=== PATIENT | male | born 1960 | race Caucasian/White ===

== ENCOUNTER 2021-09-17 06:54 | Inpatient (IN) | payer BC, SELFPAY ==
[2021-09-17] VITALS (25 sets, daily range): BP systolic 86–139; BP diastolic 50–90; PULSE 55–76; RESP 0–24; TEMP 36.6–36.9; O2SAT 97–100; BMI 22.8
--- NOTE | 2021-09-17 07:03 | ECG_ITS ---
[facility] Test Date: 2021-09-17 Pat Name: Johnathan Frances Department: Room: Gender: Male [employer]: : 1960 Requested By: Angi Galarza Order Number: [id number] Elver MD: Tiny Segura M.D. Measurements Intervals Novice Rate: 77 P: 80 IA: 154 QRS: 85 QRSD: 83 T: 94 QT: 393 QTc: 446 Interpretive Statements SINUS RHYTHM ANTEROSEPTAL MYOCARDIAL INFARCTION , PROBABLY RECENT [40+ ms Q WAVE IN V1-V4] ACUTE [place] No previous ECG available for comparison Electronically Signed On 09-17-2021 22:19:40 CDT by Tiny Segura M.D. [id number]
--- NOTE | 2021-09-17 07:03 | XRR_ITS ---
PROCEDURE INFORMATION: Exam: XR Chest Exam date and time: 09/17/2021 7:28 AM Age: 60 years old Clinical indication: Pain; Angina pectoris; Additional info: Chest pain TECHNIQUE: Imaging protocol: Radiologic exam of the chest. Views: 1 view. Total images: 2 COMPARISON: No relevant prior studies available. FINDINGS: Lungs: Unremarkable. No consolidation. Pleural spaces: Unremarkable. No pleural effusion. No pneumothorax. Heart/Mediastinum: Unremarkable. No cardiomegaly. Bones/joints: Unremarkable. XR/XR chest 1V portable [id number] IMPRESSION: No acute findings.
--- NOTE | 2021-09-17 07:26 | W.ED.CHESTPA ---
Documented by User: CHAVO Franks 09/17/21 09:46 HPI - Chest Pain General: Chief Complaint: Chest Pain Stated Complaint: chest pain Time Seen by Provider: 09/17/21 07:03 Source: patient Mode of arrival: ambulatory Limitations: no limitations History of Present Illness: Patient is a nice 60-year-old male who presents to ED today with a complaint of chest pain. 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 Patient states he was not doing anything exertional when pain began. He states he initially became nauseous with the discomfort but states after he sat down the nausea subsided. Patient states he was concerned as chest pain did not seem to be improving. 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 There was no radicular pains. He does not complain of shortness of breath or difficulty breathing. Patient has no previous cardiac or pulmonary history. He is a non-smoker. No strong family cardiac history. Patient with no known PMH/doesn't take any medications. No excessive caffeine/energy drink use. No drug/etoh use. MD complaint: chest pain Onset (ago): hour(s) Timing of current episode: constant Prior episodes: No Onset: during rest Pain location: substernal and left chest Pain radiation: none Relieving factors: nothing Exacerbating factors: exertion, palpation and movement Associated symptoms: Reports no associated symptoms and nausea (resolved); Deny abdominal pain, dyspnea, fever(s), palpitations, syncope or vomiting Treatment prior to arrival: aspirin Risk Factors: Coronary artery disease risk factors: none Thoracic aortic dissection risk factors: none Review of Systems Const: Denies: fever(s), chills, body aches, fatigue or malaise Eyes: Denies: change in vision or blurry vision Card: Reports: chest pain; Denies: palpitations, irregular heart rhythm, edema, swelling of feet/ankles, lightheadedness, syncope, pre-syncope, dyspnea on exertion, orthopnea, leg pain with exertion or acrocyanosis Resp: Denies: dyspnea, productive cough, non-productive cough, wheezing, hemoptysis or chest congestion GI: Reports: nausea (resolved); Denies: abdominal pain, vomiting or diarrhea Musc: Denies: neck pain, back pain, extremity pain, extremity swelling or joint pain Skin/Breast: Denies: rash Neuro: Denies: headache(s), numbness in extremities, weakness in extremities, sensory changes or dizziness PFSH ED PFSH: Medical History (Updated 09/17/21 @ 11:19 by Selvin Leblanc DO) No pertinent past medical history Surgical History (Updated 09/17/21 @ 11:15 by Selvin Leblanc DO) No pertinent past surgical history Social History Smoking and tobacco status: never smoked Physical Exam Const: COMMON NORMALS: no acute distress, average body habitus, patient oriented x3, no limitations, healthy appearing, alert and well nourished GENERAL APPEARANCE: cooperative ORIENTATION/CONSCIOUSNESS: Yes awake, Yes oriented to person, Yes oriented to place and Yes oriented to time HENMT: COMMON NORMALS: normocephalic and atraumatic HEAD & SCALP: normal to inspection, normocephalic and atraumatic Eye: GENERAL EYE: appearance normal, both eyes and all related structures Neck/C-Spine: COMMON NORMALS: full ROM, no lymphadenopathy, supple, no meningeal signs and no JVD GENERAL: Yes normal visual inspection Chest: COMMONS NORMALS: normal inspection of the chest OTHER: patient states he does have a little bit of tenderness with palpation of his anterior chest wall Resp: COMMON NORMALS: normal respiratory effort and clear to auscultation bilaterally AUSCULTATION: clear to auscultation bilaterally Cardio: COMMON NORMALS: no JVD, regular rate and regular rhythm RATE: regular rate RHYTHM: regular rhythm GI: COMMON NORMALS: Normal to inspection, nondistended, normoactive bowel sounds present, Soft to palpation, non-tender, No hepatosplenomegaly present and no masses PALPATION: Yes Soft to palpation and Yes No hepatosplenomegaly present : COMMON NORMALS: Yes no CVA tenderness BLADDER/KIDNEY EXAM: Yes no CVA tenderness Back/Pelvis: COMMON NORMALS: no CVA tenderness and thoracic and lumbar spine normal to inspection Extremity: COMMON NORMALS: normal to inspection, full ROM, capillary refill normal, no joint enlargement, no clubbing, cyanosis or edema, no calf tenderness and no pedal edema GENERAL: Yes normal exam except as noted Neuro: MIKE COMA SCALE: document GCS findings [place] coma scale total score: COMMON NORMALS: patient oriented x3, CN's II-XII intact bilaterally, moves all extremities, no focal motor deficits, no sensory deficits noted and gait normal SENSORIUM/ORIENTATION: Yes alert, Yes oriented to person, Yes oriented to place and Yes oriented to time MENINGEAL SIGNS: Yes no meningeal signs MOTOR EXAM: 5/5 motor strength present throughout Skin: COMMON NORMALS: no rashes or lesions noted GENERAL SKIN EXAM: no rashes or lesions noted Course Vital Signs: Vital signs: Vital Signs Temperature 97.8 F 09/17/21 09:06 Pulse Rate 71 09/17/21 09:06 Respiratory Rate 12 09/17/21 09:06 Blood Pressure 139/90 09/17/21 09:06 Pulse Oximetry 98 09/17/21 09:06 MDM - Chest Pain Medical Decision Making Shortly after examination I was handed patient's initial EKG which showed ST elevation in his anterior leads. Dr. Leblanc was immediately notified and STEMI alert called. He will assume care at this time. Lab Data : 09/17/21 07:54 09/17/21 07:54 Radiology Impressions Chest X-Ray 09/17/21 07:03 IMPRESSION: No acute findings. Laboratory Results WBC 12.2 10^3/uL (4.0-10.0) H 09/17/21 07:54 RBC 4.57 10^6/uL (4.1-5.3) 09/17/21 07:54 Hgb 14.9 g/dL (11.7-16.6) 09/17/21 07:54 Hct 42.2 % (42.0-52.0) 09/17/21 07:54 MCV 92.3 fl (80-94) 09/17/21 07:54 MCH 32.6 pg (28.0-34.0) 09/17/21 07:54 MCHC 35.3 g/dL (30.0-36.0) 09/17/21 07:54 RDW 12.2 % (12.1-15.1) 09/17/21 07:54 Plt Count 185 10^3/cmm (130-400) 09/17/21 07:54 MPV 9.9 fL (7.4-10.4) 09/17/21 07:54 Neut % (Auto) 84.9 % 09/17/21 07:54 Lymph % (Auto) 10.5 % 09/17/21 07:54 Bleck[place] % (Auto) 4.0 % 09/17/21 07:54 Eos % (Auto) 0.0 % 09/17/21 07:54 Baso % (Auto) 0.2 % 09/17/21 07:54 Neut # (Auto) 10.38 10^3/uL (1.8-7.7) H 09/17/21 07:54 Lymph # (Auto) 1.3 10^3/uL (0.8-4.8) 09/17/21 07:54 [place]ck[place] # (Auto) 0.5 10^3/uL (0.2-0.9) 09/17/21 07:54 Eos # (Auto) 0.0 10^3/uL (0.0-0.8) 09/17/21 07:54 Baso # (Auto) 0.0 10^3/uL (0.0-0.1) 09/17/21 07:54 Nucleated RBC % (auto) 0 % 09/17/21 07:54 Nucleated RBCs # 0.0 /100WBC 09/17/21 07:54 Sodium 134 mmol/L (136-145) L 09/17/21 07:54 Potassium 4.6 mmol/L (3.5-5.1) 09/17/21 07:54 Chloride 96 mmol/L (98-107) L 09/17/21 07:54 Carbon Dioxide 27 mmol/L (22-29) 09/17/21 07:54 Anion Gap 15.6 (5-19) 09/17/21 07:54 BUN 13 mg/dL (6-20) 09/17/21 07:54 Creatinine 0.8 mg/dL (0.7-1.2) 09/17/21 07:54 GFR Calculation 99.3 mL/min (90-130) 09/17/21 07:54 Glucose 96 mg/dL (65-115) 09/17/21 07:54 Calculated Osmolality 278 mOsm/kg (285-295) L 09/17/21 07:54 Calcium 9.4 mg/dL (8.5-10.5) 09/17/21 07:54 Total Bilirubin 0.4 mg/dL (0.15-1.2) 09/17/21 07:54 AST 112 U/L (0-40) H 09/17/21 07:54 ALT 27 U/L (0-41) 09/17/21 07:54 Alkaline Phosphatase 35 IU/L (40-130) L 09/17/21 07:54 Troponin T Baseline 775 ng/L (0-15) H* 09/17/21 07:54 Total Protein 7.1 g/dL (6.6-8.7) 09/17/21 07:54 Albumin 4.7 g/dL (3.5-5.2) 09/17/21 07:54 Globulin 2.4 g/dL (1.3-4.6) 09/17/21 07:54 Discharge Plan Discharge Patient Disposition: Admitted As Inpatient Admit Provider: Tim Trejo Clinical Impression: ST elevation myocardial infarction (STEMI) Condition: Stable Sign Out Sign Out Data: Patient Sign Out occurred on 09/17/21 at 08:25. Patient's care was discussed, and care was transferred from to Selvin Leblanc DO. Coding Level of Care Code ED Apple Thinner for Chg Fwd Exam Comprehensive Documented by User: Selvin Leblanc DO 09/17/21 11:19 HPI - Chest Pain General: Chief Complaint: Chest Pain Stated Complaint: chest pain Time Seen by Provider: 09/17/21 07:03 Source: patient Mode of arrival: ambulatory Limitations: no limitations History of Present Illness: 52-year-old male presents emergency room with complaint of chest pain. Discussing with patient he has had increasing anginal-like chest pain for the last couple of weeks worse with exertion relieved by rest overnight he began having chest pain around 11:00 last night it was not relieved by rest and persisted he tried to work through it and continue to worsen so he came in this morning on arrival here is initially seen by the PA and found to have an ST elevation [place] with elevation of the segments in V1 through 4. He continues to have chest pain at this time. Patient does not smoke no history of coronary disease no diabetes no known history of hypertension. No family history of coronary artery disease MD complaint: chest pain Onset (ago): hour(s) Timing of current episode: episodic Prior episodes: Yes Onset: during rest Pain location: substernal and left chest Severity: mild Quality: tightness Relieving factors: nothing Exacerbating factors: exertion Associated symptoms: Reports nausea; Deny abdominal pain, diaphoresis, dyspnea, fever(s), leg edema, palpitations, sense of impending doom, syncope or vomiting Treatment prior to arrival: aspirin (pt took 648mg ) Review of Systems Const: Denies: fever(s) or diaphoresis Card: Denies: palpitations or syncope Resp: Denies: dyspnea GI: Reports: nausea; Denies: abdominal pain or vomiting : Denies: flank pain, difficulty urinating, dysuria, urinary frequency or urinary urgency [facility] ED PFSH: Medical History (Updated 09/17/21 @ 11:19 by Selvin Leblanc DO) No pertinent past medical history Surgical History (Updated 09/17/21 @ 11:15 by Selvin Leblanc DO) No pertinent past surgical history Social History Smoking and tobacco status: never smoked Physical Exam Const: COMMON NORMALS: no acute distress GENERAL APPEARANCE: cooperative and comfortable ORIENTATION/CONSCIOUSNESS: Yes awake, Yes oriented to person, Yes oriented to place and Yes oriented to time HENMT: COMMON NORMALS: normocephalic, atraumatic and hearing grossly normal bilaterally HEAD & SCALP: normocephalic and atraumatic Neck/C-Spine: COMMON NORMALS: no JVD Resp: COMMON NORMALS: normal respiratory effort, No retractions, No use of accessory muscles and clear to auscultation bilaterally AUSCULTATION: clear to auscultation bilaterally Cardio: COMMON NORMALS: no JVD, regular rate, regular rhythm and No murmurs present (Cardio) RATE: regular rate RHYTHM: regular rhythm GI: COMMON NORMALS: Soft to palpation and No hepatosplenomegaly present AUSCULTATION: Yes normoactive bowel sounds PALPATION: Yes Soft to palpation, No Tenderness to palpation present (GI), No Guarding due to palpation present (GI) and Yes No hepatosplenomegaly present Extremity: COMMON NORMALS: normal to inspection, capillary refill normal, no clubbing, cyanosis or edema, no calf tenderness and no pedal edema Neuro: SENSORIUM/ORIENTATION: Yes oriented to person, Yes oriented to place and Yes oriented to time Skin: COMMON NORMALS: no rashes or lesions noted GENERAL SKIN EXAM: no rashes or lesions noted Course Vital Signs: Vital signs: Vital Signs Temperature 97.8 F 09/17/21 09:06 Pulse Rate 71 09/17/21 09:06 Respiratory Rate 12 09/17/21 09:06 Blood Pressure 139/90 09/17/21 09:06 Pulse Oximetry 98 09/17/21 09:06 MDM - Chest Pain Medical Decision Making Shortly after examination I was handed patient's initial EKG which showed ST elevation in his anterior leads. Dr. Leblanc was immediately notified and STEMI alert called. He will assume care at this time. STEMI alert was called after reviewed the EKG it obviously is ST elevation call Dr. Trejo was on-call when he arrived he reviewed EKG and concurred he is discussed with the patient and they are taking him to the [place] he is received heparin nitro drip has been started has been loaded with Plavix. Medical Records I reviewed the patient's medical records. Lab Data I reviewed the patient's lab results. : 09/17/21 07:54 09/17/21 07:54 Radiology Impressions Chest X-Ray 09/17/21 07:03 IMPRESSION: No acute findings. Laboratory Results WBC 12.2 10^3/uL (4.0-10.0) H 09/17/21 07:54 RBC 4.57 10^6/uL (4.1-5.3) 09/17/21 07:54 Hgb 14.9 g/dL (11.7-16.6) 09/17/21 07:54 Hct 42.2 % (42.0-52.0) 09/17/21 07:54 MCV 92.3 fl (80-94) 09/17/21 07:54 MCH 32.6 pg (28.0-34.0) 09/17/21 07:54 MCHC 35.3 g/dL (30.0-36.0) 09/17/21 07:54 RDW 12.2 % (12.1-15.1) 09/17/21 07:54 Plt Count 185 10^3/cmm (130-400) 09/17/21 07:54 MPV 9.9 fL (7.4-10.4) 09/17/21 07:54 Neut % (Auto) 84.9 % 09/17/21 07:54 Lymph % (Auto) 10.5 % 09/17/21 07:54 [place]ck[place] % (Auto) 4.0 % 09/17/21 07:54 Eos % (Auto) 0.0 % 09/17/21 07:54 Baso % (Auto) 0.2 % 09/17/21 07:54 Neut # (Auto) 10.38 10^3/uL (1.8-7.7) H 09/17/21 07:54 Lymph # (Auto) 1.3 10^3/uL (0.8-4.8) 09/17/21 07:54 [place] # (Auto) 0.5 10^3/uL (0.2-0.9) 09/17/21 07:54 Eos # (Auto) 0.0 10^3/uL (0.0-0.8) 09/17/21 07:54 Baso # (Auto) 0.0 10^3/uL (0.0-0.1) 09/17/21 07:54 Nucleated RBC % (auto) 0 % 09/17/21 07:54 Nucleated RBCs # 0.0 /100WBC 09/17/21 07:54 Sodium 134 mmol/L (136-145) L 09/17/21 07:54 Potassium 4.6 mmol/L (3.5-5.1) 09/17/21 07:54 Chloride 96 mmol/L (98-107) L 09/17/21 07:54 Carbon Dioxide 27 mmol/L (22-29) 09/17/21 07:54 Anion Gap 15.6 (5-19) 09/17/21 07:54 BUN 13 mg/dL (6-20) 09/17/21 07:54 Creatinine 0.8 mg/dL (0.7-1.2) 09/17/21 07:54 GFR Calculation 99.3 mL/min (90-130) 09/17/21 07:54 Glucose 96 mg/dL (65-115) 09/17/21 07:54 Calculated Osmolality 278 mOsm/kg (285-295) L 09/17/21 07:54 Calcium 9.4 mg/dL (8.5-10.5) 09/17/21 07:54 Total Bilirubin 0.4 mg/dL (0.15-1.2) 09/17/21 07:54 AST 112 U/L (0-40) H 09/17/21 07:54 ALT 27 U/L (0-41) 09/17/21 07:54 Alkaline Phosphatase 35 IU/L (40-130) L 09/17/21 07:54 Troponin T Baseline 775 ng/L (0-15) H* 09/17/21 07:54 Total Protein 7.1 g/dL (6.6-8.7) 09/17/21 07:54 Albumin 4.7 g/dL (3.5-5.2) 09/17/21 07:54 Globulin 2.4 g/dL (1.3-4.6) 09/17/21 07:54 Discharge Plan Discharge Patient Disposition: Admitted As Inpatient Admit Provider: Tim Trejo Clinical Impression: ST elevation myocardial infarction (STEMI) Condition: Stable Sign Out Sign Out Data: Patient Sign Out occurred on 09/17/21 at 08:25. Patient's care was discussed, and care was transferred from to Selvin Leblanc DO. Coding Level of Care Code ED Apple Thinner for George Fwd Exam Comprehensive
--- NOTE | 2021-09-17 07:52 | XACV_ITS ---
Exam Room: [facility] Ht: 173 cm Wt: 68 kg BSA: 1.81 m2 Gender: Male : 1960 Any Known Allergies: No known allergies Exam Priority: Routine Procedure(s): Procedure Description: Diagnostic procedure Procedure Description: PCI procedure Procedure Description: Left Heart Catheterization Procedure Description: Drug Eluting Coronary Stent Procedure Description: PTCA Procedure Description: Coronary Angiography Diagnostic Cath Status: Emergency Diagnostic Findings * Proximal Left Anterior Descending: Total thrombotic occlusion. This is the culprit vessel for acute ST elevation RI. It gives rise to a large sized diagonal artery that was also occluded as thrombus was proximal to its origin.. * INDICATION: 60-year-old man with no significant prior cardiac history presented to the hospital with 8 hours of chest pain symptoms. EKG demonstrated ST elevations in anterior leads. Patient was emergently brought to the cardiac Personal Driver. * Left Main has no significant disease. * Circumflex has no significant disease. * Right Coronary Artery has no significant disease. * Coronary angiography shows right dominance. PCI Status: Emergency PCI Indication: Immediate PCI for STEMI Interventional Findings * PROCEDURE DETAIL: We engaged the left main artery with XB 3.0 guide catheter. IV heparin was administered to maintain ACT above 250 S. 0.014 run-through guidewire was used to cross totally thrombotic proximal LAD stenosis. Wire went into the diagonal artery. We performed balloon angioplasty with 2.5 x 12 mm semicompliant balloon. We then used a second run-through wire that was placed in distal LAD. On the LAD wire we advanced a 3.0 x 18 mm resolute Mohit drug-eluting stent which was deployed in the proximal LAD across the diagonal artery. Slight pinching of the ostium of the diagonal artery. We crossed the guidewire into diagonal artery and performed balloon angioplasty of the ostium with a 2.25 x 12 mm semicompliant balloon. At this time final angiogram was obtained that showed excellent stent expansion in the LAD, excellent flow in the diagonal vessel and JUSTIN-3 flow. Guidewire and guide catheter were removed and patient left the Personal Driver in a stable condition.. * Proximal Left Anterior Descendin% stenosis treated with a AB TREK 2.50X12 RX BALLOON, and MDT R MOHIT 3.0X18 SUSAN. 0% residual stenosis, JUSTIN: 3 flow. * 1st Diagonal: 70% stenosis treated with a AB TREK 2.25X12 RX BALLOON. 0% residual stenosis, JUSTIN: 3 flow. Conclusions 1. Total thrombotic occlusion of proximal LAD. This is the culprit vessel for 2. acute ST elevation [place]. Status post successful revascularization with SUSAN x1.. 3. Proximal Left Anterior Descending was treated with a Balloon, and Drug Eluting Stent. 4. 1st Diagonal was treated with a Balloon. Recommendations * Transfer to ICU. * Aspirin and Plavix for atleast 1 year. * High intensity statin therapy. * Aggrastat gtt for 6 hours. * Cardiac rehab referral. * Patient will be started on beta tonja and lisinopril. Interventional RX Recommendation: PCI w/o planned CABG Diagnostic RX Recommendation: PCI w/o planned CABG Anticoagulation: Heparin Pressures Phase:Rest AO : 80 / 55 ( 67 ) @ 9:04:00 AM 101 / 69 ( 82 ) @ 9:09:00 AM 137 / 87 ( 110 ) @ 9:26:00 AM 137 / 88 ( 110 ) @ 9:26:00 AM LV : 150 / 4 / 23 @ 9:26:00 AM 149 / 6 / 24 @ 9:26:00 AM Valves Phase:DefaultPhase AV : 12.0 @ 8:35:23 AM AV Mean Gradient: 11.0 @ 8:35:23 AM Clinical Evaluation EBL: 5mL-10mL Procedural Details Pre-Procedure Time Out. Identified patient by full name and date of as verbalized by the patient/guarantor. Does the consent match the physician's order: N/A Emergent; Informed Consent not obtained due to time critical life threat. Accurate & Complete Informed Consent: N/A Emergent; Informed Consent not obtained due to time critical life threat. Inpatient/Outpatient History & Physical on Chart: N/A Emergent; Informed Consent not obtained due to time critical life threat. If H&P is completed, is and addenduem needed: N/A Emergent; Informed Consent not obtained due to time critical life threat; If yes, is the addendum complete: N/A Emergent; Informed Consent not obtained due to time critical life threat. Visualize and Verify Site with Patient/Guarantor: N/A. Relevant Radiology Images available: N/A Emergent; Informed Consent not obtained due to time critical life threat. Pre-op teaching completed and patient verbalized understanding. The risks, benefits, and alternatives of sedation and/or procedure were discussed by physician. The patient agrees to continue. Procedure started. Physician scrubbed in. [facility] Clinical Fraility Score: 3: Managing Well. Personal Driver Indications: ACS <= 24 hours. Chest Pain Symptom Assessment: Typical Angina Symptoms. Cardiovascular Instability: Yes, if yes, Persistant Ischemic Symptoms. Correct patient, site and procedure confirmed by cath team. Current diagnosis: STEMI. PERRLA. 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 Lungs clear x 5 lobes. IV Site on Arrival: 18 gauge in the right anticubital. IV Site on Arrival: 20 gauge in the left anticubital. IV Fluids: 0.9% NaCl at KVO. 0 mL infused prior to laborer mine. Oxygen started at 2liters/min via nasal canula. right groin was prepped with chloroprep then draped in the usual sterile fashion. right radial was prepped with chloroprep then draped in the usual sterile fashion. Baseline sample Acquired. HR: 58 BPM. Physician notified. Equipment: 6F - Radial. Cardiac Cath Pack. ACIST Manifold Kit Model BT 2000. Heparinized Saline (2 units/mL), 1000 mL bag. Lidocaine 1% infiltrated to the right radial. Arterial access obtained. PCI Indication: STEMI. Patient's family, Shamar, in the radiology waiting room. 6 yi XB 3.5 SH guide catheter was inserted over the wire. Cineography of the LCA performed. Runthrough guidewire was advanced through the guide catheter to lesion in the prox LAD. Inflation number : 1 A AB TREK 2.50X12 RX BALLOON was prepped and advanced across the Prox LAD , then inflated to 12 [place] for 0:16 seconds. Inflation number: 2 The AB TREK 2.50X12 RX BALLOON was reinflated across the Prox LAD, to 12 [place] for 0:16 seconds. Balloon out. Results checked. Runthrough guidewire was advanced through the guide catheter to lesion in the diaganol. Inflation Number : 3 A DOUG Patrick MOHIT 3.0X18 SUSAN -Lot Number# [id number] was prepped and advanced across the Prox LAD. The stent was deployed at 12 [place] for 0:27 seconds. Exp 2024-07-03. Runthrough wire out of the diagonal. Stent balloon out over wire. Results checked. Redirecting the Runthrough wire from the LAD to the Diagonal. Inflation number : 1 A AB TREK 2.25X12 RX BALLOON was prepped and advanced across the 1st Diag , then inflated to 12 [place] for 0:20 seconds. Balloon out. Wire out. Results checked. PCI Indication : Immediate PCI for STEMI. Guide catheter out. Current Diagnosis : STEMI. Physician arrived. Immediate Pre-Procedure Time Out. Correct Patient: Yes; Correct Procedure: Yes; Correct Site: Yes; Correct Patient Position: Yes; Correct Supplies: Yes; Dried Flammable Prep: Yes; Blood Products Available: N/A;. A 5 yi JR4 catheter in over wire. Multiple views taken of right coronary artery. ACT drawn. Results 348 seconds. Therapeutic limits - pre-heparin administration 90-150 seconds and monitoring heparin during a vascular procedure >250 seconds. Catheter redirected to the LV. EDP Sample taken: LV 150/4,23; HR: 83 BPM; SpO2: 100%. Pullback taken: LV 149/6,24; AO 137/87(110); Mean: 11mmHg, Peak to Peak: 12mmHg, SEP: 18sec/min; HR: 82 BPM; SpO2: 100%. Catheter removed over the standard wire. Dr. Trejo scrubbed out. TR band placed. Hemostasis obtained. Post Procedure: Pulses reassessed and unchanged. PERRLA. 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 No VTE prophylaxis required. Total IV fluids: 300 mL. A TR Band was successful obtaining hemostatsis at the Right Femoral artery insertion site. Complications: none. Estimated blood loss: 5mL-10mL. Responsiveness - Normal response to verbal stimuli; alert and oriented, PERRLA. Airway - Unaffected, no intervention required; spontaneous ventilation. Circulation: W/N/L, pulses unchanged. Nausea/Vomiting: No. Medication's Wasted: Lidocaine 1% = 5 mL. Medication's Wasted: Nitro = 49.8 mg. Levophed gtt off. Medication's Wasted: Heparin = 2000 Units. Procedure completed. Patient transferred by bed to ICU. Vital chart was stopped. Access Site Site: Right Femoral artery Sheath Size: 6 Fr Hemostasis Method: TR Band Hemostasis Success: Successful Procedure Medications Start: 8:06 AM Stop: 8:06 AM Medication: Levophed (norepinephrine) Amount: 5 mcg/min Route: I.V. drip Start: 8:08 AM Stop: 8:08 AM Medication: Heparin Amount: 4000 units Route: I.V. Start: 8:12 AM Stop: 8:12 AM Medication: Versed Amount: 1 mg Route: I.V. Start: 8:12 AM Stop: 8:12 AM Medication: Versed Amount: 1 mg Route: I.V. Start: 8:02 AM Stop: 8:02 AM Medication: 0.9% Saline Amount: 250 ml Route: I.V. bolus Start: 8:20 AM Stop: 8:20 AM Medication: Aggrastat 12.5 mg/250 mL Amount: 34 ml Route: I.V. bolus Start: 8:20 AM Stop: 8:20 AM Medication: Aggrastat 12.5 mg/250 mL Amount: 12.2 ml/hr Route: I.V. drip Start: 8:24 AM Stop: 8:24 AM Medication: Fentanyl Amount: 25 mcg Route: I.V. Start: 8:28 AM Stop: 8:28 AM Medication: Fentanyl Amount: 25 mcg Route: I.V. I, the attending physician, have reviewed and verified all procedure medications. Yes, all medications given per verbal order Report Signatures Finalized by Tim Trejo MD on 09/18/2021 07:59 AM
--- NOTE | 2021-09-17 07:55 | P.HP_ITS ---
Providers/Chief Complaint Admitting Physician: Tim Trejo MD Chief Complaint: chest pain History of Present Illness Johnathan Frances is a 60 year old male with no significant past medical history presented to the hospital with 8 hours of chest pain. According to patient chest pain started at 11 AM last night when he was working at [employer]. It was associated with nausea. Substernal severe pain. He has been having on and off chest pain symptoms for the last 2 to 3 weeks. This morning he decided to come to the emergency room. EKG showed Q waves and ST elevations in anterior leads. Cardiac Secondary Market Manager was emergently activated and patient was taken to the Secondary Market Manager. He was loaded with aspirin, Plavix and also given a heparin bolus. Review of Systems Const: Denies: fever(s), chills, body aches, fatigue or malaise Eyes: Denies: change in vision or blurry vision Card: Reports: chest pain; Denies: palpitations, irregular heart rhythm, edema, swelling of feet/ankles, lightheadedness, syncope, pre-syncope, dyspnea on exertion, orthopnea, leg pain with exertion or acrocyanosis Resp: Denies: dyspnea, productive cough, non-productive cough, wheezing, he moptysis or chest congestion GI: Reports: nausea (resolved); Denies: abdominal pain, vomiting or diarrhea Musc: Denies: neck pain, back pain, extremity pain, extremity swelling or joint pain Skin/Breast: Denies: rash Neuro: Denies: headache(s), numbness in extremities, weakness in extremities, sensory changes or dizziness PFSH Acute 2 PFSH: Social History Smoking and tobacco status: never smoked Vitals/I&O/Wt Last Vital Signs Temp 97.8 F 09/17/21 07:21 Pulse 71 09/17/21 07:21 Resp 12 09/17/21 07:21 BP 139/90 09/17/21 07:21 Pulse Ox 98 09/17/21 07:21 Weight last 48 hrs Weight 150 lb Physical Exam Narrative: GENERAL: Patient is alert, awake and oriented x3. [] NECK: No jugular vein distension. [] HEENT: No cyanosis. No icterus. No pallor. [] HEART: Regular S1 and S2. No murmur, rub or gallop. [] LUNGS: Clear to auscultate bilaterally. [] ABDOMEN: Soft, nontender and nondistended. Positive bowel sounds. No guarding, rebound or tenderness. [] CENTRAL NERVOUS SYSTEM: Grossly nonfocal. [] EXTREMITIES: Lower extremities with 1+ edema bilaterally. Pulses palpable in the lower extremities, both dorsalis pedis and posterior tibial. [] Data : 09/17/21 07:54 09/17/21 07:54 A&P Assessment and plan (1) Acute ST elevation myocardial infarction: Status: Acute Plan Patient has presented with ST elevation [place]. However symptoms have been present for the last 8 hours. Ongoing severe chest pain. Patient has been loaded with aspirin, Plavix and given heparin bolus. He is going to cardiac Secondary Market Manager for emergent cath with possible percutaneous coronary intervention. Risks and benefits of the procedure have been discussed with the patient who understands the risks and benefits and wants to proceed with the procedure. Order echocardiogram You will need beta-tonja and JERI inhibitor therapy. Trend troponins. Attestations Medical Necessity Statement*: Care expected to cross 2 midnights. Patient presented with acute anterior wall ST elevation [place] with emergent activation of cardiac Secondary Market Manager. Coding Level of Care Code Acute Map Mounter for George Jones Diagnoses Acute ST elevation myocardial infarction I21.3
[2021-09-17 07:59] LABS: Basophils % 0.2 %; Hematocrit 42.2 % (42.0-52.0); Hemoglobin 14.9 g/dL (11.7-16.6); Lymphocytes # 1.3 10^3/uL (0.8-4.8); Lymphocytes % 10.5 %; Mean Corpuscular HGB Conc 35.3 g/dL (30.0-36.0); Mean Corpuscular Hemoglobin 32.6 pg (28.0-34.0); Mean Corpuscular Volume 92.3 fl (80-94); Mean Platelet Volume 9.9 fL (7.4-10.4); Monocytes # 0.5 10^3/uL (0.2-0.9); Neutrophils # 10.38 10^3/uL (1.8-7.7); Neutrophils % 84.9 %; Nucleated Red Blood Cells % 0 %; Platelet Count 185 10^3/cmm (130-400); Red Blood Count 4.57 10^6/uL (4.1-5.3); Red Cell Distribution Width 12.2 % (12.1-15.1); White Blood Count 12.2 10^3/uL (4.0-10.0)
[2021-09-17] MEDS: clopidogrel 300 mg Tablet 600 MG PO (08:09)
[2021-09-17] MEDS: heparin 5,000 unit/mL INJ 1 mL 4000 UNIT IVP (08:10)
[2021-09-17] MEDS: nitroglycerin drip 50 MG/250 ML PREMIX (08:13)
[2021-09-17 08:20] LABS: Alanine Aminotransferase 27 U/L (0-41); Albumin Level 4.7 g/dL (3.5-5.2); Alkaline Phosphatase 35 IU/L (40-130); Anion Gap 15.6 (5-19); Aspartate Amino Transferase 112 U/L (0-40); Blood Urea Nitrogen 13 mg/dL (6-20); Calcium 9.4 mg/dL (8.5-10.5); Carbon Dioxide 27 mmol/L (22-29); Chloride 96 mmol/L (98-107); Creatinine Clr Calc Pharmacy 97.1694; Globulin 2.4 g/dL (1.3-4.6); Glomerular Filtration Rate 99.3 mL/min (90-130); Glucose 96 mg/dL (65-115); Osmolality Calculated 278 mOsm/kg (285-295); Potassium 4.6 mmol/L (3.5-5.1); Sodium 134 mmol/L (136-145); Total Bilirubin 0.4 mg/dL (0.15-1.2); Total Protein 7.1 g/dL (6.6-8.7)
[2021-09-17 08:28] LABS: Troponin(5th) Baseline 775 ng/L (0-15)
--- NOTE | 2021-09-17 09:03 | ECG_ITS ---
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 Measurements Intervals [place] Rate: 67 P: 85 NE: 143 QRS: 95 QRSD: 79 T: 103 QT: 443 QTc: 471 Interpretive Statements SINUS RHYTHM POSSIBLE RIGHT ATRIAL ENLARGEMENT [0.25mV P-WAVE] POSSIBLE LEFT ATRIAL ENLARGEMENT [-0.1mV P-WAVE IN V1/V2] ANTEROLATERAL MYOCARDIAL INFARCTION , PROBABLY RECENT [40+ ms Q WAVE IN I/aVL/V3-V6] ACUTE [place] Compared to ECG 09/17/2021 14:27:50 Sinus bradycardia no longer present Myocardial infarct finding still present Electronically Signed On 09-17-2021 22:21:55 CDT by Tiny Segura M.D. [id number]
--- NOTE | 2021-09-17 09:10 | USCV_ITS ---
Johnathan Frances Age: 60 Gender: M : 1960 Exam Date: 09/17/2021 10:57 Ordering Phys: Tim Trejo M.D ([email or web address]) Technologist: KARSTEN [place]am [place] [facility] [place] Indication: STEMI. s/p cardiac cath, stenting. No prior hx of cardiac intervention. BP: 139 / 90 HR: 73 Rhythm: Sinus Technical Quality: Good MEASUREMENTS (Male / Female) Normal Values 2D ECHO LV Diastolic Diameter PLAX 4.1 cm 4.2 - 5.9 / 3.9 - 5.3 cm LV Systolic Diameter PLAX 3.0 cm IVS Diastolic Thickness 1.4 cm 0.6 - 1.0 / 0.6 - 0.9 cm IVS Systolic Thickness 1.5 cm LVPW Diastolic Thickness 1.0 cm 0.6 - 1.0 / 0.6 - 0.9 cm LVPW Systolic Thickness 1.4 cm LVOT Diameter 1.7 cm LV Ejection Fraction 2D Teich 53.1 % LV Ejection Fraction MOD 2C 48.4 % LV Ejection Fraction 2C AL 47.9 % LA Diameter 3.6 cm LA Width 3.4 cm LA Height 4.1 cm RA Width 3.5 cm RA Height 3.9 cm Aorta at Sinotubular Diameter 2.9 cm IVC Diameter 1.8 cm M-MODE Aortic Annulus Diameter 3.0 cm LA Ao Ratio MM 1.2 MV E Point Septal Separation 0.5 cm DOPPLER AV Peak Velocity 125.0 cm/s LVOT Peak Velocity 86.0 cm/s AV Area Cont Eq vti 1.7 cm squared AV Area Cont Eq pk 1.6 cm squared MV Peak Velocity 98.0 cm/s MV Area PHT 4.3 cm squared Mitral E to A Ratio 0.9 MV E' Velocity 52.0 cm/s Mitral E to MV E' Ratio 11.4 Mitral E to LV E' Lateral Ratio 12.4 Mitral E to LV E' Septal Ratio 10.5 TR Peak Velocity 259.5 cm/s TR Peak Gradient 26.9 mmHg TV Peak E Velocity 63.0 cm/s Right Atrial Pressure 5.0 mmHg Pulmonary Artery Systolic Pressu 31.9 mmHg PV Peak Velocity 73.0 cm/s RV Acceleration Time 0.1 s RV Ejection Time 0.3 s RV AcT/ET 0.3 FINDINGS Left Ventricle Normal left ventricular size. LV systolic function is moderately to severely reduced with EF of 30-35%. Severe hypokinesis of anterior, anteroseptal and mid to apical anterolateral adam. 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 LV thrombus cannot be ruled out Right Ventricle The right ventricle is normal in size and function. Right Atrium The right atrium is normal in size. Left Atrium The left atrium is normal in size. Mitral Valve Structurally normal mitral valve without significant stenosis or prolapse. There is mild mitral regurgitation. Aortic Valve Structurally normal aortic valve without significant sclerosis or stenosis. There is no aortic regurgitation. Tricuspid Valve Structurally normal tricuspid valve without significant stenosis. Mild tricuspid regurgitation. Pulmonary artery systolic pressure is normal. Pulmonic Valve There is trace pulmonic regurgitation. Pericardium Normal pericardium without effusion. Aorta Normal ascending aorta dimension. IVC CONCLUSIONS LV systolic function is moderate to severely reduced with EF of 30 to 35%. Severe hypokinesis of anterior, anteroseptal and mid to apical anterolateral adam. 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 Mild mitral regurgitation. Mild tricuspid regurgitation. Trace pulmonic regurgitation. No comparison studies are available. Tim Trejo MD (Electronically Signed) Final Date: 17 September 2021 17:16 S
[2021-09-17] MEDS: metoprolol tartrate 25 mg Tablet 12.5 MG PO ×2 (10:20→20:41)
--- NOTE | 2021-09-17 10:45 | PC.CHAP ---
Pastoral Care Encounter/Spiritual Assessment Type of Contact [] Declined pot reliner visit [] Patient/Family/Request visit [] Outpatient visit [] Follow-up visit [] Physician referral [] Code/Alert [x] Routine visit [] Staff referral [] Actively dying [] Patient sleeping [x] Family support [] [] Out of room [] Palliative care [] [x] Receiving care in room [] Pre-surgical visit [] Trauma [] Long length of stay [x] ICU visit [] Other: Relational/Emotional Strength [] Patient feels connected with others/family/visitors/staff [] Distress [] Loneliness/isolation [] Abandonment Spirituality of Patient [] Person of Nelida [] Attends Hoahaoism of their Nelida [] Believes in Prayer [] Reads Bible or Restorationist materials [] There are Spiritual issues to be addressed Campground Cleaning Attendant Interventions [x] Prayer [] Active listening [] Non-anxious presence [] Spiritual/emotional support [] Crisis/trauma care [] Spiritual counseling [] Bereavement support [] Provided bereavement packet [] Provided Bible/devotional materials [] Provided toy/stuffed animal, coloring book to patient or family member [] Provided Communion [] Anointing/[place] [] Salvation [x] Completed spiritual assessment [] Other: Impact on Illness or Injury [] Angry [] Fearful [] Anxious [] Often cries [] Exhaustion [] Unable to work [] Unable to attend religion [] Unable to walk/stand [] Unable to read [] Unable to drive [] Unable to eat/drink [] Unable to sleep [] Unable to be with family [] Patient intubated [] Other: Summary Time spent with patient
[2021-09-17 11:57] LABS: Estmated Average Glucose 100; Hemoglobin A1C 5.1 % (4.0-6.0)
[2021-09-17 12:36] LABS: Troponin 5 2HR 8549 ng/L (0-15); Troponin 5 2HR Delta 7774 ABS# (0-10)
--- NOTE | 2021-09-17 13:03 | ECG_ITS ---
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 Measurements Intervals [place] Rate: 59 P: 84 FL: 147 QRS: 96 QRSD: 77 T: 105 QT: 443 QTc: 441 Interpretive Statements SINUS BRADYCARDIA POSSIBLE RIGHT ATRIAL ENLARGEMENT [0.25mV P-WAVE] POSSIBLE LEFT ATRIAL ENLARGEMENT [-0.1mV P-WAVE IN V1/V2] ANTEROLATERAL MYOCARDIAL INFARCTION , PROBABLY RECENT [40+ ms Q WAVE IN I/aVL/V3-V6] ACUTE [place] Compared to ECG 09/17/2021 06:35:30 Sinus rhythm no longer present Myocardial infarct finding still present Electronically Signed On 09-17-2021 22:23:04 CDT by Tiny Segura M.D. [id number]
[2021-09-17 14:54] LABS: Troponin 5 6HR Delta 7304 ng/L (0-12)
[2021-09-17 14:55] LABS: Troponin 5 6HR 8079 ng/L (0-15)
--- NOTE | 2021-09-17 17:25 | USCV_ITS ---
Johnathan Frances Age: 60 Gender: M : 1960 Exam Date: 09/17/2021 18:49 Ordering Phys: Tim Trejo M.D ([email or web address]) Technologist: GENNA Exam Location: [facility] [place] Indication: R/O LV Thrombus BP: 88 / 56 HR: 61 Rhythm: Sinus Technical Quality: Adequate MEASUREMENTS (Male / Female) Normal Values 2D ECHO LV Diastolic Diameter PLAX 3.7 cm 4.2 - 5.9 / 3.9 - 5.3 cm LV Systolic Diameter PLAX 2.6 cm IVS Diastolic Thickness 1.0 cm 0.6 - 1.0 / 0.6 - 0.9 cm IVS Systolic Thickness 1.4 cm LVPW Diastolic Thickness 1.5 cm 0.6 - 1.0 / 0.6 - 0.9 cm LVPW Systolic Thickness 1.7 cm LVOT Diameter 2.0 cm LV Ejection Fraction 2D Teich 55.6 % LV Ejection Fraction MOD 2C 71.3 % LV Ejection Fraction 2C AL 71.5 % LA Diameter 3.1 cm LA Width 2.0 cm LA Height 3.4 cm RA Width 2.6 cm RA Height 3.4 cm Aorta at Sinotubular Diameter 2.3 cm IVC Diameter 2.0 cm M-MODE Aortic Annulus Diameter 2.8 cm LA Ao Ratio MM 1.1 MV E Point Septal Separation 1.0 cm FINDINGS Left Ventricle Right Ventricle Right Atrium Left Atrium Mitral Valve Aortic Valve Tricuspid Valve Pulmonic Valve Pericardium Aorta IVC CONCLUSIONS This is a limited echocardiogram performed to rule out LV thrombus. LV systolic function is moderate to severely reduced with EF of 30-35%. Severe hypokinesis of mid to apical anteroseptal, anterior and anterolateral adam. [place] is akinetic. No evidence of LV thrombus is seen Tim Trejo MD (Electronically Signed) Final Date: 18 September 2021 08:11 S
[2021-09-17 19:21] LABS: Chol HDL Ratio 3.44 mg/dL (1.0-5.00); Cholesterol 358 mg/dL (0-200); HDL Cholesterol 104 mg/dL (60-100); LDL Cholesterol Calculated 247 mg/dL (50-129); LDL HDL Ratio 2.38 RATIO (0.00-3.22); Triglycerides 34 mg/dL (0-150)
[2021-09-17] MEDS: atorvastatin 40 mg Tablet 80 MG PO (20:41)
--- NOTE | 2021-09-17 22:31 | PC.NURSE ---
Levophed Upon assessment of patient, levophed administering at 2 mcg/min while MAR displayed no administration and the order discontinued. Dr. Dong contacted and order renewed for the levophed. MAR updated to display administration rates.
[2021-09-18] VITALS (36 sets, daily range): BP systolic 87–112; BP diastolic 55–77; PULSE 53–77; RESP 9–22; TEMP 36.6–36.9; O2SAT 97–100; BMI 21.1
[2021-09-18] MEDS: aspirin 81 mg EC Tablet PO ×2 (06:23→08:34)
[2021-09-18] MEDS: clopidogrel 75 mg Tablet PO ×2 (06:23→08:34)
[2021-09-18 06:47] LABS: Basophils % 0.6 %; Eosinophils # 0.1 10^3/uL (0.0-0.8); Eosinophils % 1.3 %; Hematocrit 38.8 % (42.0-52.0); Hemoglobin 13.7 g/dL (11.7-16.6); Lymphocytes # 2.3 10^3/uL (0.8-4.8); Lymphocytes % 31.9 %; Mean Corpuscular HGB Conc 35.3 g/dL (30.0-36.0); Mean Corpuscular Hemoglobin 31.7 pg (28.0-34.0); Mean Corpuscular Volume 89.8 fl (80-94); Mean Platelet Volume 10.8 fL (7.4-10.4); Monocytes # 0.6 10^3/uL (0.2-0.9); Monocytes % 8.1 %; Neutrophils # 4.17 10^3/uL (1.8-7.7); Neutrophils % 57.8 %; Nucleated Red Blood Cells % 0 %; Platelet Count 151 10^3/cmm (130-400); Red Blood Count 4.32 10^6/uL (4.1-5.3); Red Cell Distribution Width 12.1 % (12.1-15.1); White Blood Count 7.2 10^3/uL (4.0-10.0)
[2021-09-18 07:02] LABS: Blood Urea Nitrogen 13 mg/dL (6-20); Calcium 8.9 mg/dL (8.5-10.5); Carbon Dioxide 26 mmol/L (22-29); Chloride 101 mmol/L (98-107); Glomerular Filtration Rate 115.8 mL/min (90-130); Glucose 90 mg/dL (65-115); Osmolality Calculated 284 mOsm/kg (285-295); Sodium 137 mmol/L (136-145)
[2021-09-18 07:03] LABS: Anion Gap 14.5 (5-19); Potassium 4.5 mmol/L (3.5-5.1)
--- NOTE | 2021-09-18 09:04 | PM.PN ---
Subjective Subjective: Patient has been doing well. He underwent successful revascularization of proximal LAD total thrombotic occlusion with SUSAN x 1. Ostial diagonal artery stenosis was treated with balloon angioplasty. Vitals/I&O/Wt Last Vital Signs Temp 98.1 F 09/18/21 07:56 Pulse 68 09/18/21 07:56 Resp 13 09/18/21 07:56 BP 104/77 09/18/21 07:56 Pulse Ox 99 09/18/21 07:56 09/17/21 09/18/21 09/18/21 22:59 06:59 14:59 Intake Total 350 / 350 63.881 / 413.881 250 / 250 Output Total 550 / 550 1175 / 1725 Balance -200 / -200 -1111.119 / -1311.119 250 / 250 Weight last 48 hrs Weight 138 lb 12.8 oz Weight 150 lb Physical Exam Narrative: GENERAL: Patient is alert, awake and oriented x3. [] NECK: No jugular vein distension. [] HEENT: No cyanosis. No icterus. No pallor. [] HEART: Regular S1 and S2. No murmur, rub or gallop. [] LUNGS: Clear to auscultate bilaterally. [] ABDOMEN: Soft, nontender and nondistended. Positive bowel sounds. No guarding, rebound or tenderness. [] CENTRAL NERVOUS SYSTEM: Grossly nonfocal. [] EXTREMITIES: Lower extremities with 1+ edema bilaterally. Pulses palpable in the lower extremities, both dorsalis pedis and posterior tibial. [] Data : 09/18/21 06:05 09/18/21 06:05 A&P Assessment and plan (1) Acute ST elevation myocardial infarction: Status: Acute Plan Patient presented with ST elevation [place]. Patient underwent emergent coronary angiogram that showed total thrombotic occlusion of proximal LAD. He underwent successful revascularization with SUSAN x1. Balloon angioplasty of ostial diagonal artery was also performed. He has overall done well. LV systolic function is moderate to severely reduced with EF of 30 to 35%. No LV thrombus seen. We will plan on LifeVest at time of discharge. Continue aspirin and Plavix for at least 1 year He is borderline hypotensive. If blood pressure improves, will continue metoprolol. We will also start low-dose lisinopril based on blood pressure readings. Attestations Medical Necessity Statement*: Care expected to cross 2 midnights. Patient had presented with acute ST elevation [place] yesterday and underwent successful revascularization of proximal LAD with SUSAN x1. Coding Level of Care Code Acute Jumpbasting Lining Baster for George Jones Diagnoses Acute ST elevation myocardial infarction I21.3
[2021-09-18] MEDS: atorvastatin 40 mg Tablet 80 MG PO (20:06)
--- NOTE | 2021-09-18 21:00 | PC.NURSE ---
Activity Patient walked several laps around the unit independently. All vitals were stable following activity, no issues noted.
[2021-09-19] VITALS (11 sets, daily range): BP systolic 92–111; BP diastolic 55–64; PULSE 65–83; RESP 14–19; TEMP 36.6; O2SAT 96–100; BMI 21.4
[2021-09-19 06:01] LABS: Basophils % 0.5 %; Eosinophils # 0.1 10^3/uL (0.0-0.8); Eosinophils % 1.9 %; Hematocrit 38.2 % (42.0-52.0); Hemoglobin 13.1 g/dL (11.7-16.6); Lymphocytes # 1.9 10^3/uL (0.8-4.8); Lymphocytes % 29.2 %; Mean Corpuscular HGB Conc 34.3 g/dL (30.0-36.0); Mean Corpuscular Hemoglobin 32.3 pg (28.0-34.0); Mean Corpuscular Volume 94.1 fl (80-94); Mean Platelet Volume 10.3 fL (7.4-10.4); Monocytes # 0.6 10^3/uL (0.2-0.9); Monocytes % 9.4 %; Neutrophils # 3.82 10^3/uL (1.8-7.7); Neutrophils % 58.8 %; Nucleated Red Blood Cells % 0 %; Platelet Count 141 10^3/cmm (130-400); Red Blood Count 4.06 10^6/uL (4.1-5.3); Red Cell Distribution Width 12.3 % (12.1-15.1); White Blood Count 6.5 10^3/uL (4.0-10.0)
[2021-09-19 06:17] LABS: Anion Gap 14.2 (5-19); Blood Urea Nitrogen 14 mg/dL (6-20); Calcium 8.6 mg/dL (8.5-10.5); Carbon Dioxide 25 mmol/L (22-29); Chloride 99 mmol/L (98-107); Glomerular Filtration Rate 115.8 mL/min (90-130); Glucose 85 mg/dL (65-115); Osmolality Calculated 278 mOsm/kg (285-295); Potassium 4.2 mmol/L (3.5-5.1); Sodium 134 mmol/L (136-145)
--- NOTE | 2021-09-19 09:20 | P.DS_ITS ---
Discharge Providers Date of Admission: 09/17/21 08:30 Date of Discharge: September 19, 2021 Attending Provider at Admission: Tim Trejo M.D Attending Provider at Discharge: Tim Trejo M.D Diagnoses at Discharge Discharge Diagnosis (1) Acute ST elevation myocardial infarction: Reason for Visit Reason for Visit: chest pain Brief History: 60 year old male with no significant past medical history presented to the hospital with 8 hours of chest pain.? According to patient chest pain started at 11 PM the night before his admission, when he was working at [employer].? It was associated with nausea.? Substernal severe pain.? He has been having on and off chest pain symptoms for the last 2 to 3 weeks.? 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 EKG showed Q waves and ST elevations in anterior leads.? Cardiac [employer]visor [employer] was emergently activated and patient was taken to the [employer].? He was loaded with aspirin, Plavix and also given a heparin bolus. Hospital Course Hospital Course 60 year old male with no significant past medical history presented to the hospital with 8 hours of chest pain.? According to patient chest pain started at 11 PM the night before his admission, when he was working at [employer].? It was associated with nausea.? Substernal severe pain.? He has been having on and off chest pain symptoms for the last 2 to 3 weeks.? 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 EKG showed Q waves and ST elevations in anterior leads.? Cardiac [employer] was emergently activated and patient was taken to the [employer].? He was loaded with aspirin, Plavix and also given a heparin bolus. Coronary angiogram showed total thrombotic occlusion of proximal LAD. He underwent successful revascularization with SUSAN x1. Ostial diagonal artery had some pinching and thrombus which was treated with balloon angioplasty. Echocardiogram showed EF of 30 to 35%. No LV thrombus was seen. We tried arranging for LifeVest however patient did not want to stay in the hospital for device rep to come. Plan was for him to get it at home. He understood risk of arrhythmias. Patient also had borderline low blood pressures. Low-dose beta- tonja was initiated however he could not start JERI inhibitor secondary to hypotension. We will start it as outpatient if blood pressures improved. Physical Exam Narrative: GENERAL: Patient is alert, awake and oriented x3. [] NECK: No jugular vein distension. [] HEENT: No cyanosis. No icterus. No pallor. [] HEART: Regular S1 and S2. No murmur, rub or gallop. [] LUNGS: Clear to auscultate bilaterally. [] ABDOMEN: Soft, nontender and nondistended. Positive bowel sounds. No guarding, rebound or tenderness. [] CENTRAL NERVOUS SYSTEM: Grossly nonfocal. [] EXTREMITIES: Lower extremities with 1+ edema bilaterally. Pulses palpable in the lower extremities, both dorsalis pedis and posterior tibial. 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 echo complete* [id number] Urgent Ultrasound 09/17/21 09:10 Completed US echo limited with contrast [CV. echo lmt w/w contras Ultrasound 09/17/21 17:25 Completed [id number]] Routine Pending at discharge Category Date Time Status Basic Metabolic Panel AM LABS Lab 09/20/21 04:00 Ordered Complete Blood Count w/Auto AM LABS Lab 09/20/21 04:00 Ordered Radiology Impressions Chest X-Ray 09/17/21 07:03 IMPRESSION: No acute findings. Laboratory Results WBC 6.5 10^3/uL (4.0-10.0) 09/19/21 05:27 RBC 4.06 10^6/uL (4.1-5.3) L 09/19/21 05:27 Hgb 13.1 g/dL (11.7-16.6) 09/19/21 05:27 Hct 38.2 % (42.0-52.0) L 09/19/21 05:27 MCV 94.1 fl (80-94) H 09/19/21 05:27 MCH 32.3 pg (28.0-34.0) 09/19/21 05:27 MCHC 34.3 g/dL (30.0-36.0) 09/19/21 05:27 RDW 12.3 % (12.1-15.1) 09/19/21 05:27 Plt Count 141 10^3/cmm (130-400) 09/19/21 05:27 MPV 10.3 fL (7.4-10.4) 09/19/21 05:27 Neut % (Auto) 58.8 % 09/19/21 05:27 Lymph % (Auto) 29.2 % 09/19/21 05:27 [place] % (Auto) 9.4 % 09/19/21 05:27 Eos % (Auto) 1.9 % 09/19/21 05:27 Baso % (Auto) 0.5 % 09/19/21 05:27 Neut # (Auto) 3.82 10^3/uL (1.8-7.7) 09/19/21 05:27 Lymph # (Auto) 1.9 10^3/uL (0.8-4.8) 09/19/21 05:27 [place] # (Auto) 0.6 10^3/uL (0.2-0.9) 09/19/21 05:27 Eos # (Auto) 0.1 10^3/uL (0.0-0.8) 09/19/21 05:27 Baso # (Auto) 0.0 10^3/uL (0.0-0.1) 09/19/21 05:27 Nucleated RBC % (auto) 0 % 09/19/21 05:27 Nucleated RBCs # 0.0 /100WBC 09/19/21 05:27 Sodium 134 mmol/L (136-145) L 09/19/21 05:27 Potassium 4.2 mmol/L (3.5-5.1) 09/19/21 05:27 Chloride 99 mmol/L (98-107) 09/19/21 05:27 Carbon Dioxide 25 mmol/L (22-29) 09/19/21 05:27 Anion Gap 14.2 (5-19) 09/19/21 05:27 BUN 14 mg/dL (6-20) 09/19/21 05:27 Creatinine 0.7 mg/dL (0.7-1.2) 09/19/21 05:27 GFR Calculation 115.8 mL/min (90-130) 09/19/21 05:27 Glucose 85 mg/dL (65-115) 09/19/21 05:27 Estimat Average Glucose 100 09/17/21 07:54 Hemoglobin A1c 5.1 % (4.0-6.0) 09/17/21 07:54 Calculated Osmolality 278 mOsm/kg (285-295) L 09/19/21 05:27 Calcium 8.6 mg/dL (8.5-10.5) 09/19/21 05:27 Total Bilirubin 0.4 mg/dL (0.15-1.2) 09/17/21 07:54 AST 112 U/L (0-40) H 09/17/21 07:54 ALT 27 U/L (0-41) 09/17/21 07:54 Alkaline Phosphatase 35 IU/L (40-130) L 09/17/21 07:54 Troponin T Baseline 775 ng/L (0-15) H* 09/17/21 07:54 Troponin T 120 Minute 8549 ng/L (0-15) H 09/17/21 12:00 Delta Troponin T 7774 ABS# (0-10) H* 09/17/21 12:00 Troponin T Hi Sens 6Hr 8079 ng/L (0-15) H 09/17/21 13:44 Troponin T Hi Sens 6Hr Delta 7304 ng/L (0-12) H* 09/17/21 13:44 Total Protein 7.1 g/dL (6.6-8.7) 09/17/21 07:54 Albumin 4.7 g/dL (3.5-5.2) 09/17/21 07:54 Globulin 2.4 g/dL (1.3-4.6) 09/17/21 07:54 Triglycerides 34 mg/dL (0-150) 09/17/21 07:54 Cholesterol 358 mg/dL (0-200) H 09/17/21 07:54 LDL Cholesterol, Calc 247 mg/dL (50-129) H 09/17/21 07:54 HDL Cholesterol 104 mg/dL (60-100) H 09/17/21 07:54 LDL/HDL Ratio 2.38 RATIO (0.00-3.22) 09/17/21 07:54 Cholesterol/HDL Ratio 3.44 mg/dL (1.0-5.00) 09/17/21 07:54 Vitals Last Vital Signs Temp 97.9 F 09/19/21 04:00 Pulse 70 09/19/21 08:05 Resp 18 09/19/21 06:00 BP 105/58 09/19/21 07:00 Pulse Ox 98 09/19/21 08:05 Discharge Plan Discharge Patient Disposition: Home Condition: Stable Prescriptions: New atorvastatin 40 mg Tablet 80 mg PO BEDTIME Qty: 90 3RF clopidogrel 75 mg Tablet 75 mg PO DAILY Qty: 90 3RF aspirin 81 mg Tablet,Delayed Release (Dr/Ec) 81 mg PO DAILY Qty: 90 3RF metoprolol tartrate 25 mg Tablet 12.5 mg PO BID@0900,2100 Qty: 60 2RF Discharge Orders: Discharge Order (Routine); Ordered 09/19/21 Ordered By: Tim Trejo Referrals: Tera Paulino DO [Physician] - 09/24/21 10:30 am (You have a hospital follow up appointment scheduled with Dr. Paulino. This will also be an appointment to establish primary care. ) Tim Trejo M.D [Physician] - 1 month (Dr. Méndez will be for post hospital , Thursday October 28, 2021 at time of 11:45 ) Cheryl Patterson FNP [Nurse Practitioner] - 7-10 days (appointment scheduled , saturday SEPTEMBER 25, 2021 AT 3:00 PM ) Discharge Diet: Cardiac Discharge Activity: Increase activity as tolerated Patient Instructions: Metoprolol (By mouth), Aspirin (By mouth), Atorvastatin (By mouth) (Lipitor), Clopidogrel (By mouth) (Plavix), Coronary Angioplasty (DC), Heart Healthy Diet (DC), Opioid Safety, Post Angiogram Home Care Instructions, Post Heart Attack Stoplight Activity Restrictions/Additional Instructions: Please do not lift more than 5 pounds of weight for the next 5 days Discharge Attestations Time Spent in Discharge Care*: greater than 30 min Quality Metrics Clinical Quality Measures [ Acute Myocardial Infaction { Clinical Trial Participant: No; Contraindication to aspirin: None; Aspirin prescribed; Contraindication to statin: None; Statin prescribed; Contraindication to PCI: None; PCI performed;}] Coding Level of Care Code Acute Chg FW DC note Diagnoses Acute ST elevation myocardial infarction I21.3
[2021-09-19] MEDS: metoprolol tartrate 25 mg Tablet 12.5 MG PO (09:31)
[2021-09-19] MEDS: aspirin 81 mg EC Tablet PO (09:31)
[2021-09-19] MEDS: clopidogrel 75 mg Tablet PO (09:32)
--- NOTE | 2021-09-19 11:20 | PC.NURSE ---
Discharge instructions given to patient. Explained that claim representative for [employer] life vest will meet patient as outpatient today at patient's home. IVs removed. Patient allowed to dress. Patient and belongings taken to front entrance by this nurse, accompanied by patient's friend.
== END 2021-09-19 11:30 | disposition home or self-care (01) | DRG 247 ==
LOC: ER 07:27 → CCL 07:54 → ICU 08:18
PROVIDERS: Physician Assistant; Admitting Provider Internal Medicine; Emergency Provider Family Medicine; Visit Provider Internal Medicine
PROC: 027034Z Dilation of Coronary Artery, One Artery with Drug-eluting Intraluminal Device, Percutaneous Approach (ICD-10-PCS; principal; 2021-09-17 07:45)
PROC: 027034Z Dilation of Coronary Artery, One Artery with Drug-eluting Intraluminal Device, Percutaneous Approach (ICD-10-PCS; 2021-09-17 07:45)
DX: I21.02 ST elevation (STEMI) myocardial infarction involving left anterior descending coronary artery (principal)
CPT/HCPCS: 36415; 71045; 80048; 80053; 80061; 83036; 84484; 85025; 85347; 93005; 93306; 93452; 93458; 96360; 96365; 99152; 99153; 99285; C1725; C1769; C1874; C1887; C1894; C8924; C9600; J1644; J2250; J3490; Q9956; Q9967

== ENCOUNTER → 2021-09-25 15:51 | Outpatient (BNVA) | payer BC, SELFPAY | PROVIDERS: PCP Family Medicine; Visit Provider Nurse Practitioner Family | DX: I50.20 Unspecified systolic (congestive) heart failure (principal) | CPT/HCPCS: 80048 ==

== ENCOUNTER 2021-10-07 12:45 | Outpatient (RCR) | payer BC, SELFPAY | END 2021-11-02 23:59 | disposition home or self-care (01) | LOC: CR 12:45 | PROVIDERS: Family Provider Family Medicine; PCP Family Medicine; Visit Provider Internal Medicine | DX: I25.2 Old myocardial infarction (principal) | CPT/HCPCS: 93798 ==

== ENCOUNTER 2021-11-03 13:32 | Outpatient (RCR) | payer BC, SELFPAY | END 2021-12-03 23:59 | disposition home or self-care (01) | LOC: CR 13:32 | PROVIDERS: Family Provider Family Medicine; PCP Family Medicine; Visit Provider Internal Medicine | DX: I25.2 Old myocardial infarction (principal) | CPT/HCPCS: 93798 ==

== ENCOUNTER 2021-11-06 08:25 | Outpatient (CLI) | payer BC, SELFPAY ==
--- NOTE | 2021-11-06 08:15 | USCV_ITS ---
Johnathan Frances Age: 61 Gender: M : 1960 Exam Date: 11/06/2021 09:02 Ordering Phys: Alvaro Méndez MD ([email or web address]) Technologist: JUANIS Exam Location: [facility] [place] Indication: RECENT PA BP: 134 / 82 HR: 65 Rhythm: Sinus Technical Quality: Adequate MEASUREMENTS (Male / Female) Normal Values 2D ECHO LV Diastolic Diameter PLAX 5.1 cm 4.2 - 5.9 / 3.9 - 5.3 cm LV Systolic Diameter PLAX 3.7 cm IVS Diastolic Thickness 1.0 cm 0.6 - 1.0 / 0.6 - 0.9 cm IVS Systolic Thickness 1.5 cm LVPW Diastolic Thickness 1.3 cm 0.6 - 1.0 / 0.6 - 0.9 cm LVPW Systolic Thickness 1.2 cm LVOT Diameter 2.0 cm LV Ejection Fraction 2D Teich 53.0 % LV Ejection Fraction MOD 2C 45.7 % LV Ejection Fraction 2C AL 46.0 % LA Diameter 3.1 cm LA Width 3.8 cm LA Height 4.6 cm RA Width 3.6 cm RA Height 4.5 cm Aorta at Sinotubular Diameter 2.2 cm IVC Diameter 1.6 cm M-MODE Aortic Annulus Diameter 3.1 cm LA Ao Ratio MM 1.0 MV E Point Septal Separation 0.6 cm DOPPLER AV Peak Velocity 137.0 cm/s LVOT Peak Velocity 102.0 cm/s AV Area Cont Eq vti 2.3 cm squared AV Area Cont Eq pk 2.3 cm squared MV Peak Velocity 111.0 cm/s MV Area PHT 5.1 cm squared Mitral E to A Ratio 0.9 MV E' Velocity 54.0 cm/s Mitral E to MV E' Ratio 7.6 Mitral E to LV E' Lateral Ratio 6.6 Mitral E to LV E' Septal Ratio 9.2 TR Peak Velocity 290.9 cm/s TR Peak Gradient 33.8 mmHg TR Mean Velocity 228.7 cm/s TR Mean Gradient 22.8 mmHg TR Velocity Time Integral 81.6 cm TV Peak E Velocity 50.0 cm/s Right Atrial Pressure 3.0 mmHg Pulmonary Artery Systolic Pressu 36.8 mmHg PV Peak Velocity 115.0 cm/s RV Acceleration Time 0.1 s RV Ejection Time 0.3 s RV AcT/ET 0.3 FINDINGS Left Ventricle Left ventricle is normal in size. LV systolic function is moderately reduced with EF of 35 to 40%. Moderate hypokinesis of mid to apical anterolateral, anterior and mid to apical anteroseptal adam. 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 Grade 1 diastolic dysfunction Right Ventricle Normal in size and function. Right Atrium Normal in size normal. RA pressure Left Atrium Normal in size Mitral Valve Structurally normal valve. Mild mitral regurgitation. Aortic Valve Structurally normal valve.Stenosis or regurgitation is seen. Tricuspid Valve Mild tricuspid regurgitation. TR jet to calculate RVSP. Pulmonic Valve Not well-visualized Pericardium Normal Aorta Normal in size IVC CONCLUSIONS LV systolic function is moderately reduced with EF of 35 to 40%. Above-mentioned regional wall motion abnormalities are seen. Grade 1 diastolic dysfunction. Mild mitral regurgitation. Mild tricuspid regurgitation. Compared to prior echocardiogram from 09/17/2021, LV systolic function has improved slightly and is 35 to 40% now. Tim Trejo MD (Electronically Signed) Final Date: 15 November 2021 10:43 S
== END 2021-11-06 08:26 | disposition home or self-care (01) ==
LOC: RAD 08:25
PROVIDERS: Family Provider Family Medicine; PCP Family Medicine; Visit Provider Internal Medicine Cardiovascular Disease
DX: I50.20 Unspecified systolic (congestive) heart failure (principal); I08.1 Rheumatic disorders of both mitral and tricuspid valves
CPT/HCPCS: 93306

== ENCOUNTER 2021-12-04 12:58 | Outpatient (RCR) | payer BC, SELFPAY | END 2022-01-02 23:59 | disposition home or self-care (01) | LOC: CR 12:58 | PROVIDERS: Family Provider Family Medicine; PCP Family Medicine; Visit Provider Internal Medicine | DX: I25.2 Old myocardial infarction (principal) | CPT/HCPCS: 93798 ==

== ENCOUNTER 2022-07-17 08:26 | Outpatient (CLI) | payer OTHER, SELFPAY ==
--- NOTE | 2022-07-17 08:45 | USCV_ITS ---
Johnathan Frances Age: 61 Gender: M : 1960 Exam Date: 07/17/2022 08:49 Ordering Phys: Cheryl Patterson Technologist: Exam Location: [facility] [place] [facility] [place] Indication: ef BP: 120 / 70 HR: 66 Rhythm: Sinus Technical Quality: Good MEASUREMENTS (Male / Female) Normal Values 2D ECHO LV Diastolic Diameter PLAX 4.3 cm 4.2 - 5.9 / 3.9 - 5.3 cm LV Systolic Diameter PLAX 2.9 cm IVS Diastolic Thickness 1.6 cm 0.6 - 1.0 / 0.6 - 0.9 cm IVS Systolic Thickness 1.2 cm LVPW Diastolic Thickness 1.1 cm 0.6 - 1.0 / 0.6 - 0.9 cm LVPW Systolic Thickness 1.5 cm LVOT Diameter 2.0 cm LV Ejection Fraction 2D Teich 55.6 % LV Ejection Fraction MOD 2C 71.4 % LV Ejection Fraction 2C AL 70.2 % LA Diameter 4.0 cm Aorta at Sinotubular Diameter 2.1 cm M-MODE Aortic Annulus Diameter 2.9 cm LA Ao Ratio MM 1.5 MV E Point Septal Separation 1.0 cm DOPPLER AV Peak Velocity 155.0 cm/s LVOT Peak Velocity 102.0 cm/s AV Area Cont Eq vti 2.2 cm squared AV Area Cont Eq pk 2.1 cm squared MV Area PHT 5.0 cm squared Mitral E to A Ratio 0.8 MV E' Velocity 48.0 cm/s Mitral E to MV E' Ratio 8.1 Mitral E to LV E' Lateral Ratio 8.0 Mitral E to LV E' Septal Ratio 8.2 TR Peak Velocity 151.7 cm/s TR Peak Gradient 9.2 mmHg TV Peak E Velocity 114.0 cm/s Right Atrial Pressure 3.0 mmHg Pulmonary Artery Systolic Pressu 12.2 mmHg PV Peak Velocity 85.0 cm/s RV Acceleration Time 0.2 s FINDINGS Left Ventricle Left ventricle is normal in size. LV systolic function is normal with EF of 50-55%. Severe hypokinesis of apical wall. Grade 1 diastolic dysfunction Right Ventricle Normal in size and function Right Atrium Normal in size Left Atrium Normal in size Mitral Valve Structurally normal mitral valve. Trace mitral regurgitation. Aortic Valve Structurally normal aortic valve.No significant stenosis or regurgitation. Tricuspid Valve Mild tricuspid regurgitation. Pulmonary artery systolic pressure is normal. Pulmonic Valve Not well visualized Pericardium Normal Aorta Normal in size IVC Appears to be normal CONCLUSIONS LV systolic function is normal with EF of 50 to 55%. Severe hypokinesis of apical wall. Grade 1 diastolic dysfunction Trace mitral regurgitation Mild tricuspid regurgitation Compared to prior echocardiogram from 2021, LV systolic function has improved significantly. Tim Trejo MD (Electronically Signed) Final Date: 01 August 2022 14:44 S
== END 2022-07-17 08:27 | disposition home or self-care (01) ==
LOC: RAD 08:29
PROVIDERS: PCP Family Medicine; Visit Provider Nurse Practitioner Family
DX: I25.10 Atherosclerotic heart disease of native coronary artery without angina pectoris (principal); I25.5 Ischemic cardiomyopathy; I50.20 Unspecified systolic (congestive) heart failure; I07.1 Rheumatic tricuspid insufficiency
CPT/HCPCS: 93306

== ENCOUNTER 2022-12-25 07:10 | Outpatient (CLI) | payer OTHER, SELFPAY ==
[2022-12-25 07:28] LABS: Basophils % 0.5 %; Eosinophils # 0.1 10^3/uL (0.0-0.8); Eosinophils % 0.8 %; Hematocrit 39.9 % (37-53); Lymphocytes # 2.3 10^3/uL (0.8-4.8); Lymphocytes % 37.6 %; Mean Corpuscular HGB Conc 33.8 g/dL (30-55); Mean Corpuscular Hemoglobin 31.6 pg (27-33); Mean Corpuscular Volume 93.4 fl (82-101); Mean Platelet Volume 9.1 fL (7.4-10.4); Monocytes # 0.3 10^3/uL (0.2-0.9); Monocytes % 5.3 %; Neutrophils # 3.36 10^3/uL (1.8-7.7); Neutrophils % 55.8 %; Nucleated Red Blood Cells % 0 %; Platelet Count 183 10^3/cmm (157-399); Red Blood Count 4.27 10^6/uL (3.85-5.65); Red Cell Distribution Width 12.1 % (12.1-15.1); White Blood Count 6.03 10^3/uL (3.29-11.43)
[2022-12-25 07:53] LABS: Alanine Aminotransferase 16 U/L (0-41); Albumin Level 4.7 g/dL (3.5-5.2); Alkaline Phosphatase 37 U/L (40-130); Anion Gap 16.1 (5-19); Aspartate Amino Transferase 19 U/L (0-40); Blood Urea Nitrogen 16 mg/dL (8-23); Calcium 9.4 mg/dL (8.5-10.5); Carbon Dioxide 26 mmol/L (22-29); Chloride 99 mmol/L (98-107); Chol HDL Ratio 4.29 mg/dL (1.0-5.00); Cholesterol 446 mg/dL (0-200); Glomerular Filtration Rate 86.1 mL/min (90-130); Glucose 84 mg/dL (65-115); HDL Cholesterol 104 mg/dL (60-100); LDL Cholesterol Calculated 334 mg/dL (50-129); LDL HDL Ratio 3.21 RATIO (0.00-3.22); Osmolality Calculated 284 mOsm/kg (285-295); Potassium 4.1 mmol/L (3.5-5.1); Sodium 137 mmol/L (136-145); Total Bilirubin 0.6 mg/dL (0.15-1.2); Total Protein 6.7 g/dL (6.6-8.7); Triglycerides 42 mg/dL (0-150)
== END 2022-12-25 07:11 | disposition home or self-care (01) ==
PROVIDERS: PCP Family Medicine; Visit Provider Family Medicine
DX: I10 Essential (primary) hypertension (principal)
CPT/HCPCS: 36415; 80053; 80061; 85025

== ENCOUNTER → 2023-06-28 08:36 | Outpatient (BNVA) | payer OTHER, SELFPAY | PROVIDERS: PCP Family Medicine; Visit Provider Nurse Practitioner Family | DX: R30.0 Dysuria (principal) | CPT/HCPCS: 81000; 87077; 87086; 87184 ==

== ENCOUNTER 2023-07-07 07:07 | Outpatient (CLI) | payer OTHER, SELFPAY ==
[2023-07-07 07:32] LABS: Basophils % 0.6 %; Eosinophils # 0.1 10^3/uL (0.0-0.8); Eosinophils % 1.8 %; Hematocrit 36.6 % (37-53); Lymphocytes % 39.9 %; Mean Corpuscular HGB Conc 33.6 g/dL (30-55); Mean Corpuscular Hemoglobin 31.4 pg (27-33); Mean Corpuscular Volume 93.4 fl (82-101); Mean Platelet Volume 8.8 fL (7.4-10.4); Monocytes # 0.3 10^3/uL (0.2-0.9); Monocytes % 6.5 %; Nucleated Red Blood Cells % 0 %; Platelet Count 223 10^3/cmm (157-399); Red Blood Count 3.92 10^6/uL (3.85-5.65); Red Cell Distribution Width 12.8 % (12.1-15.1); White Blood Count 4.91 10^3/uL (3.29-11.43)
[2023-07-07 07:56] LABS: Alanine Aminotransferase 70 U/L (0-41); Alkaline Phosphatase 46 U/L (40-130); Anion Gap 13.1 (5-19); Aspartate Amino Transferase 28 U/L (0-40); Blood Urea Nitrogen 18 mg/dL (8-23); Calcium 8.9 mg/dL (8.5-10.5); Carbon Dioxide 26 mmol/L (22-29); Chloride 102 mmol/L (98-107); Chol HDL Ratio 3.37 mg/dL (1.0-5.00); Cholesterol 212 mg/dL (0-200); Globulin 2.4 g/dL (1.3-4.6); Glomerular Filtration Rate 98.6 mL/min (90-130); Glucose 83 mg/dL (65-115); HDL Cholesterol 63 mg/dL (60-100); LDL Cholesterol Calculated 142 mg/dL (50-129); LDL HDL Ratio 2.25 RATIO (0.00-3.22); Osmolality Calculated 285 mOsm/kg (285-295); Potassium 4.1 mmol/L (3.5-5.1); Prostate Specific Antigen Scr 12.18 ng/mL (0-4); Sodium 137 mmol/L (136-145); Thyroid Stimulating Hormone 1.41 uIU/mL (0.27-4.20); Total Bilirubin 0.5 mg/dL (0.15-1.2); Total Protein 6.4 g/dL (6.6-8.7); Triglycerides 35 mg/dL (0-150)
== END 2023-07-07 07:08 | disposition home or self-care (01) ==
LOC: LAB 07:08
PROVIDERS: PCP Family Medicine; Visit Provider Family Medicine
DX: E78.2 Mixed hyperlipidemia (principal); I10 Essential (primary) hypertension; Z12.5 Encounter for screening for malignant neoplasm of prostate
CPT/HCPCS: 36415; 80053; 80061; 84443; 85025; G0103

== ENCOUNTER 2023-11-08 06:56 | Outpatient (CLI) | payer OTHER, SELFPAY | END 2023-11-08 06:57 | disposition home or self-care (01) | PROVIDERS: PCP Family Medicine; Visit Provider Family Medicine | DX: Z12.5 Encounter for screening for malignant neoplasm of prostate (principal) | CPT/HCPCS: 36415; 84153 ==